=== PATIENT | female | born 1960 | race Caucasian/White ===

== ENCOUNTER → 2017-01-12 | Outpatient (CLI) | payer BC, OTHER | LOC: PUL 10:26 | DX: J42 Unspecified chronic bronchitis (principal); Z87.891 Personal history of nicotine dependence ==

== ENCOUNTER 2021-09-29 17:11 | Inpatient (IN) | payer OTHER ==
[~2021-09-29] VITALS: Ht 172.7 cm; Wt 98.4 kg
[2021-09-29 17:14] VITALS: BP 130/74
[2021-09-29 17:45] LABS: URINE BLOOD 1+ (Negative); URINE COLOR YELLOW; URINE GLUCOSE-RANDOM* TRACE (Negative); URINE KETONES NEGATIVE (Negative); URINE LEUKOCYTES-REFLEX NEGATIVE (Negative); URINE NITRITE-REFLEX NEGATIVE (Negative); URINE PROTEIN (DIPSTICK) 1+ (Negative); URINE SPECIFIC GRAVITY >= 1.030 (1.005-1.035)
[2021-09-29 17:47] LABS: ICTOTEST (BILI CONFIRMATORY) Negative (Negative); URINE BILIRUBIN NEGATIVE (Negative)
[2021-09-29 17:48] LABS: URINE CLARITY SL HAZY
[2021-09-29 17:52] LABS: AMP/METHAMP Negative (Negative); BARBITURATES Negative (Negative); BENZODIAZEPINES Negative (Negative); COCAINE Negative (Negative); METHADONE Negative (Negative); OPIATES Negative (Negative); PCP Negative (Negative)
[2021-09-29 18:00] LABS: HYALINE CASTS 0-3 Few /LPF (None Seen); SQUAMOUS 0-3 Few /LPF (0-3); URINE RBC 1-2 Rare /HPF (NONE SEEN); URINE WBC-REFLEX 0-5 Rare /HPF (0-5)
[2021-09-29 18:01] LABS: BE(vivo) 2.6 mmol/L (-2 to +3); HCO3 29.3 mmol/L (22.0-26.0); PCO2 52.7 mmHg (35.0-45.0); PO2 136.3 mmHg (80.0-100.0); pH 7.363 (7.360-7.450); sO2 98.6 % (92.0-98.0)
[2021-09-29 18:01] LABS: CRYSTALS None Seen /LPF (None Seen); FINE GRANULAR CASTS 0-3 Few /LPF (None Seen)
[2021-09-29 18:15] LABS: HEMATOCRIT 47.5 % (37.0-47.0); HEMOGLOBIN 15.4 gm/dL (12.0-15.0); MCH 29.8 pg (26.0-34.0); MCHC 32.5 g/dL (28.0-37.0); MCV 91.9 fL (80.0-100.0); PLATELET COUNT 177 thou/uL (150-400); RBC 5.17 mil/uL (4.20-5.00); RDW 15.1 % (10.5-14.5); WBC 11.3 thou/uL (4.0-11.0)
[2021-09-29 18:40] LABS: CALCIUM 8.5 mg/dL (8.5-10.1); CREATININE 1.2 mg/dL (0.6-1.0); POTASSIUM 4.2 mmol/L (3.5-5.1)
[2021-09-29 18:59] LABS: ABSOLUTE NEUTROPHILS 9.2 thou/uL (1.4-8.2); ALBUMIN 3.1 g/dL (3.4-5.0); TOTAL BILIRUBIN 3.1 mg/dL (0.2-1.0); TOTAL PROTEIN 6.4 g/dL (6.4-8.2)
--- NOTE | 2021-09-29 20:31 | NUR ---
SPOKE WITH PT FAMILY FRIEND ASHLEY MITCHELL [phone]. PT GRANDDAUGHTER JENA CORDOVA IS WITH NITIN. SPOKE WITH THEM AT LENGTH >20 MIN REGARDING TESTING AND ER PROCESS. EXPLAINED LAB AND RADIOLOGY TESTING AND ADMISSION PROCESS. PT DAUGHTER HARLAN WAS AT BEDSIDE AND HAD CALLED FAMILY TELLING THEM PT WAS HAVING STROKES SEIZURES AND A HEART ATTACK. REASSURED FAMILY THAT THERE HAS BEEN NO DIAGNOSIS MADE AT THIS TIME TESTING IN ONGOING. EXPLAINED THAT PT HAS HAD NO SEIZURE LIKE ACTIVITY AND THAT HER NEUROLOGICAL PRESENTATION IS NOT CONCERNING FOR AN ACUTE STROKE AT THIS TIME. REASSURED THAT ASSESSMENT AND MONITORING IN ONGOING AND I WILL CALL WHEN TESTING IS COMPLETED AND MORE INFORMATION IS AVALIABLE.
[2021-09-29 22:30] VITALS: BP 107/48
[2021-09-29 23:00] VITALS: BP 101/69
[2021-09-30] VITALS (19 sets, daily range): BP systolic 99–128; BP diastolic 49–71
--- NOTE | 2021-09-30 01:00 | NUR ---
Transfer to room 245 for closer monitoring.
[2021-09-30 03:10] LABS: URINE BILIRUBIN NEGATIVE (Negative); URINE BLOOD 3+ (Negative); URINE CLARITY SL CLOUDY; URINE COLOR YELLOW; URINE GLUCOSE-RANDOM* NEGATIVE (Negative); URINE KETONES 1+ (Negative); URINE LEUKOCYTES NEGATIVE (Negative); URINE NITRITE NEGATIVE (Negative); URINE PROTEIN (DIPSTICK) TRACE (Negative)
[2021-09-30 04:40] LABS: BACTERIA 1-9 Few /HPF (None Seen); CELLULAR CASTS 0-3 Few /LPF (None Seen); CRYSTALS None Seen /LPF (None Seen); MUCUS 0-3 Light strn/LPF (None Seen); SQUAMOUS 0-3 Few /LPF (0-3); URINE RBC >20 Many /HPF (NONE SEEN); URINE WBC 1-5 Rare /HPF (NONE SEEN)
[2021-09-30 06:12] LABS: HEMATOCRIT 46.2 % (37.0-47.0); HEMOGLOBIN 14.7 gm/dL (12.0-15.0); MCH 29.6 pg (26.0-34.0); MCHC 31.7 g/dL (28.0-37.0); MCV 93.3 fL (80.0-100.0); RBC 4.95 mil/uL (4.20-5.00); RDW 15.2 % (10.5-14.5)
[2021-09-30 07:28] LABS: ANION GAP 11 mmol/L (7-16); BUN 17 mg/dL (7-18); CALCIUM 8.2 mg/dL (8.5-10.1); CHLORIDE 103 mmol/L (98-107); CO2 30 mmol/L (21-32); GLUCOSE 105 mg/dL (74-106); POTASSIUM 3.8 mmol/L (3.5-5.1); SGPT 1778 U/L (14-59); SODIUM 144 mmol/L (136-145); TOTAL BILIRUBIN 2.8 mg/dL (0.2-1.0); TOTAL PROTEIN 6.9 g/dL (6.4-8.2)
--- NOTE | 2021-09-30 07:28 | NUR ---
ORDERS FOR EVAL AND TREAT HOWEVER Pt TRANSFERRED TO ICU. WILL PLACE ON HOLD AND AWAIT NEW ORDERS WHEN APPROPRIATE
--- NOTE | 2021-09-30 07:42 | EKG ---
[address] [address] ELECTROCARDIOGRAM REPORT Name: DANIEL TREVINO Room #: 245-P [facility] IN .R.#: [id number] Admission: 09/29/21 Attend Phys: Curt López MD Discharge: Date of : 64 Report #: [id number] [facility] ED Test Date: 2021-09-29 Test Time: 19:11:51 Pat Name: DANIEL CURIEL Department: Room: [facility] Gender: F Real Estate Financial Analyst: tierra : 1960 Requested By: Ravindra Bell Order Number: [id number] MD: Laureano Mei Measurements Intervals [place] Rate: 83 P: 63 VA: 134 QRS: 90 QRSD: 93 T: -17 QT: 352 QTc: 414 Interpretive Statements Sinus rhythm Borderline right axis deviation Repol abnrm precordial leads No previous ECG available for comparison Electronically Signed On 09-30-2021 7:41:52 FORGE HELPER by Laureano Mei [email or web address] <ELECTRONICALLY SIGNED> By: Laureano Mei MD, [facility] 09/30/21 0741 10 10 Laureano Mei MD, FACC /EPI
[2021-09-30 07:58] LABS: SGOT 2236 U/L (15-37)
[2021-09-30 10:11] LABS: GGTP 95 U/L (5-55)
--- NOTE | 2021-09-30 10:57 | 2DMMODE ---
[facility] [place] [address] 2 D/M-MODE ECHOCARDIOGRAM Name: DANIEL TREVINO Room #: 245-P [facility] IN M.R.#: [id number] Admission: 09/29/21 Attend Phys: Ronald Bateman Discharge: Date of : 64 Report #: [id number] THIS REPORT FOR: cc: Tierra Azul MD, Stephanie B. MD Santiago, Patrick MD [facility] ~ APPROVED REPORT Study performed: 09/30/2021 09:21:15 EXAM: Comprehensive 2D, Doppler, and color-flow Echocardiogram Patient Location: ICU Room #: [facility] Status: routine BSA: 2.12 HR: 71 bpm BP: 99/50 mmHg Rhythm: NSR Other Information Study Quality: Adequate Technically limited study due to minimal patient cooperation. Indications Elevated troponin. 2D Dimensions IVSd: 9.72 (7-11mm) LVOT Diam: 19.56 (18-24mm) LVDd: 51.94 mm PWd: 10.27 (7-11mm) Ascending Ao: 27.25 (22-36mm) LVDs: 36.41 (25-40mm) Left Atrium: 39.92 (27-40mm) Aortic Root: 29.47 mm Volumes Left Atrial Volume (Systole) Single Plane 4CH: 37.23 mL Single Plane 2CH: 30.81 mL LA ESV Index: 17.00 mL/m2 Aortic Valve AoV Peak Ankit.: 1.32 m/s AO Peak Gr.: 6.95 mmHg LVOT Max P.93 mmHg LVOT Max V: 1.11 m/s [facility] [address] [place] [address] 2 D/M-MODE ECHOCARDIOGRAM Name: DANIEL TREVINO Room #: 245-P [facility] IN [facility]#: [id number] Admission: 09/29/21 Attend Phys: Ronald Pride Dec Discharge: Date of : 64 Report #: [id number] MARIPOSA Vmax: 2.53 cm2 Mitral Valve E/A Ratio: 1.4 MV Decel. Time: 214.06 ms MV E Max Ankit.: 0.79 m/s MV A Ankit.: 0.57 m/s MV PHT: 62.08 ms IVRT: 58.82 ms Pulmonary Valve PV Peak Ankit.: 0.76 m/s PV Peak Gr.: 2.30 mmHg Tricuspid Valve RAP Estimate: 12.00 mmHg Left Ventricle The left ventricle is normal size. There is normal LV segmental wall motion. There is normal left ventricular wall thickness. Left ventricular systolic function is normal. LVEF is 55%. Right Ventricle The right ventricle is normal size. The right ventricular systolic function is normal. Atria The left atrium size is normal. The right atrium size is normal. Aortic Valve The aortic valve is normal in structure. No aortic regurgitation is present. There is no aortic valvular stenosis. Mitral Valve The mitral valve is normal in structure. Trace mitral regurgitation. Tricuspid Valve The tricuspid valve is normal in structure. There is no tricuspid valve regurgitation noted. Unable to assess PA pressure. Pulmonic Valve The pulmonary valve is normal in structure. Trace pulmonic regurgitation. Great Vessels [facility] [address] [place] [address] 2 D/M-MODE ECHOCARDIOGRAM Name: YARELIROSEANN CURIELDANIEL Montiel Room #: 245-P [facility] IN ..#: [id number] Admission: 09/29/21 Attend Phys: Ronald Gambino Discharge: Date of : 64 Report #: [id number] The aortic root is normal in size. The ascending aorta is normal in size. IVC is dilated and collapses <50% with inspiration. Pericardium There is no pericardial effusion. <Conclusion> Normal left ventricle size/wall thickness Ejection fraction 55%, no obvious segmental wall motion normality Normal right ventricle size/function Normal atrial size Normal aortic/mitral valve structure and function No tricuspid valve insufficiency No pericardial effusion Normal aortic root size. <ELECTRONICALLY SIGNED> By: Laureano Mei MD, FACC 09/30/21 1057 1057 1057 Laureano Mei MD, FACC /INF
[2021-09-30 15:09] LABS: FOLIC ACID 6.7 ng/mL (8.6-58.9)
[2021-09-30 15:28] LABS: CHOLESTEROL 157 mg/dL (<200); HDL CHOLESTEROL 38 mg/dL (>40); LDL CHOLESTEROL 96 mg/dL (<100); TC:HDL 4.1 Ratio (Not establshd); TRIGLYCERIDE 117 mg/dL (<150); VLDL 23 mg/dL (<40)
--- NOTE | 2021-09-30 15:52 | NUR ---
PICC PLACED IN ICU
--- NOTE | 2021-09-30 16:50 | NUR ---
PT ADMITTED RELATED TO LIVER FAILURE AND ENCEPHLOPATHY. CM REVIEWED CHART AND SPOKE WITH CARE TEAM. PT SEEN BY CARDIOLOGY AND HAD ECHO. PT HAD CT OF HEAD AND ABD. CM CALLED AND SPOKE WITH PT'S DTR AMI. SHE INDICATED THAT PT HAD BEEN A&O X4. CAT SCANNER OPERATOR. DTR INDICATED THAT PATIENT RESIDES IN A HOUSE WITH WHO HER MOTHER. 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 DTR INDICATED PT HAD BEEN INDEPENDENET WITH GAIT AND ADLS CAT SCANNER OPERATOR. CARE TEAM INDICATED THAT PT MAY BE ABLE TO TRANSFER OUT OF ICU ONCE A BED IS OPEN. CM FOLLOWING REGARDING DC PLANNING.
--- NOTE | 2021-09-30 22:58 | NUR ---
Nursing Note Assumed care at 1900; pt resting in bed. a/o x4; was unsure about hospital name; discussed POC; currently resting on 3L NC; BLAKE; weakness noted; afebrile, SR/SB, heard to DD, no c/o pain; mild confusion. lungs clear over diminished; noted mouth breather when sleeping. pt stated that after an ERCP she did have a resp. code/aspiration requiring intubation/vent/icu stay in the past. Stated she 'hasnt been the same since'. pt transferring to room 211 [address]
[2021-10-01] VITALS: BP 111/71
[2021-10-01 03:06] LABS: HAV IgM AB (ANTI-HAV IgM) Negative (Negative); HEPATITIS B SURFACE AG Negative (Negative)
[2021-10-01 04:18] LABS: HEMATOCRIT 42.1 % (37.0-47.0); HEMOGLOBIN 13.2 gm/dL (12.0-15.0); MCH 29.4 pg (26.0-34.0); MCHC 31.4 g/dL (28.0-37.0); MCV 93.5 fL (80.0-100.0); RBC 4.5 mil/uL (4.20-5.00); RDW 15.3 % (10.5-14.5); WBC 10.8 thou/uL (4.0-11.0)
[2021-10-01 04:45] VITALS: BP 103/75
[2021-10-01 04:48] LABS: ALBUMIN 2.6 g/dL (3.4-5.0); CALCIUM 8.2 mg/dL (8.5-10.1); CREATININE 0.8 mg/dL (0.6-1.0); MAGNESIUM 2.7 mg/dL (1.8-2.4); POTASSIUM 3.9 mmol/L (3.5-5.1); TOTAL BILIRUBIN 0.8 mg/dL (0.2-1.0)
[2021-10-01 07:14] VITALS: BP 106/57
[2021-10-01 08:04] LABS: HEPATITIS C VIRUS AB <0.1
[2021-10-01 11:08] VITALS: BP 110/64
[2021-10-01 15:44] VITALS: BP 101/58
[2021-10-01] MEDS ORDERED: DESVENLAFAXINE50 MG PO (16:34)
[2021-10-01] MEDS ORDERED: NORCO5 PO (16:34)
[2021-10-01] MEDS ORDERED: NEURONTIN100 MG PO (16:35)
[2021-10-01] MEDS ORDERED: HYDROCORTISONE5 MG PO (16:37)
[2021-10-01] MEDS ORDERED: LEVOTHYROXINE125 MC1 PO (16:38)
[2021-10-01] MEDS ORDERED: ZOFRAN4 MG PO (16:39)
[2021-10-01] MEDS ORDERED: PANCRELIPASE (16:59)
[2021-10-01] MEDS ORDERED: RANITIDINE PO (17:00)
[2021-10-01 19:53] VITALS: BP 112/65
--- NOTE | 2021-10-01 20:07 | NUR ---
PATIENT ALERT/ORIENTED BUT FLUCUATES WITH MENTATION STATUS. HAS PERIODS OF FORGETFULNESS/DISCONNECT WITH STATMENTS SHE IS MAKING. DENIES ANY PAIN OR DISCOMFORT, STATES SHE IS JUST READY TO GET MOVING TO GO HOME. SINUS RHYTHM/[place] ON THE MONITOR. MID 40'S-50'S WHILE SLEEPING. IV FLUIDS DISCONTINUED PER ORDERS. PICC LINE RE-DRESSED BY IV NURSE WITH BOARDERED FOAM DRESSING DUE TO TAPE SENSITIVITY. DAUGHTER AT BEDSIDE THIS AFTERNOON, REQUESTED PHYSICIAN CONTACT HER SHE FEELS THEY ARE GETTING MISMATCHED INFORMATION BETWEEN PROVIDERS. SPOKE WITH DR. MARSHALL AND HE CONTACTED HER. UPDATED PATIENT MED REC THIS HAD NOT BEEN DONE SINCE ADMIT. PATIENT UP TO CHAIR THIS AFTERNOON AFTER HAVING BOWEL MOVEMENT. UP WITH 1 ASSIST. UNSTEADY ON FEET. PROGRESSING BUT WILL REQUIRE MORE REHAB AND CONGNITIVE IMPROVEMENT FOR SAFE DISCHARGE.
[2021-10-02 02:01] LABS: ABSOLUTE NEUTROPHILS 7.3 thou/uL (1.4-8.2); BASOPHILS 0.2 % (0.0-2.0); EOSINOPHILS 0.1 % (0.0-3.0); HEMATOCRIT 40.5 % (37.0-47.0); HEMOGLOBIN 13.2 gm/dL (12.0-15.0); LYMPHOCYTES 7.6 % (24.0-44.0); MCH 30.3 pg (26.0-34.0); MCHC 32.6 g/dL (28.0-37.0); MONOCYTES 4.6 % (1.0-8.0); PLATELET COUNT 128 thou/uL (150-400); POLYS 87.5 % (36.0-66.0); RBC 4.35 mil/uL (4.20-5.00); RDW 15.3 % (10.5-14.5); WBC 8.9 thou/uL (4.0-11.0)
[2021-10-02 02:06] LABS: ALBUMIN 2.6 g/dL (3.4-5.0); CALCIUM 8.1 mg/dL (8.5-10.1); CREATININE 0.8 mg/dL (0.6-1.0); MAGNESIUM 2.5 mg/dL (1.8-2.4); POTASSIUM 3.7 mmol/L (3.5-5.1); TOTAL BILIRUBIN 0.5 mg/dL (0.2-1.0); TOTAL PROTEIN 5.9 g/dL (6.4-8.2)
[2021-10-02 04:22] VITALS: BP 119/76
--- NOTE | 2021-10-02 04:32 | NUR ---
PT RESTING ON AND OFF IN ROOM, AWOKE AT [facility], CONFUSED TO DATE AND TIME, WANTED TO WATCH [employer] GAME, AFTER SEVERAL ATTEMPTS AT REORIENTATION SHE CALLED HER DAUGHTER AND FINALLY ACCEPTED ORIENTATION ANSWERS, LABS DRAWN AND SENT TO LAB, VSS REMAINS SB ON MONITOR, NO C/O PAIN, WILL CON'T TO MONITOR PER PPOC.
[2021-10-02 07:09] VITALS: BP 123/66
[2021-10-02] MEDS ORDERED: CEFUROXIME500 MG PO (08:50)
[2021-10-02 11:00] VITALS: BP 112/62
[2021-10-02] MEDS ORDERED: LEVOFLOXACIN500 MG PO (12:49)
[2021-10-02 15:15] VITALS: BP 96/59
--- NOTE | 2021-10-02 17:40 | NUR ---
PATIENT IS STILL REQUIRING OXYGEN AND NOT SAFE TO DISCHARGE. DR. MARSHALL CONTACTED MULTIPLE TIMES ABOUT INABILITY TO WEAN OXYGEN. PATIENT SATING 80% ON 2L, TURNED BACK TO 3L AND MAINTAINING 90-92%. DAUGHTER VISITED AND ALSO CONCEREND ABOUT SAFE DISCHARGE PATIENT IS STILL CONFUSED.
[2021-10-02 20:20] VITALS: BP 99/56
--- NOTE | 2021-10-03 01:01 | NUR ---
PT SITTING IN RECLINER WITH FEET ELEVATED NOW ASKING TO USE BSC AND GO BACK TO BED, REMAINS UNSTEADY WHEN UP PLACED BED ALARM ON, A&O YET IMPULSIVE AND DISORIENTED TO TIME, VSS, O2 AT 3L/NC, STATES SHE THINKS SHE CAN GO HOME WITHOUT THE OXYGEN, WILL CON'T TO MONITOR PER PPOC.
[2021-10-03 04:59] VITALS: BP 115/64
[2021-10-03 06:57] LABS: ALBUMIN 2.6 g/dL (3.4-5.0); CALCIUM 8.2 mg/dL (8.5-10.1); CREATININE 0.7 mg/dL (0.6-1.0); MAGNESIUM 2.3 mg/dL (1.8-2.4); TOTAL BILIRUBIN 0.6 mg/dL (0.2-1.0); TOTAL PROTEIN 5.6 g/dL (6.4-8.2)
[2021-10-03 07:15] VITALS: BP 126/65
[2021-10-03 10:45] VITALS: BP 111/66
[2021-10-03 11:00] VITALS: BP 111/66
--- NOTE | 2021-10-03 11:08 | NUR ---
RT CAME TO DESK TO LET STAFF KNOW THAT PATIENT WAS LOCATED ON THE FLOOR. AT THE SAME TIME THIS RN WAS ON THE PHONE WITH THE WAR ROOM ABOUT LEADS BEING OFF. YAMILA FUENTES, AND MYSELF ENTERED ROOM TO FIND PATIENT ON FLOOR NEXT TO BSC. PATIENT STATES THAT SHE HAD CALLED OUT TWICE AND NEEDED TO USE THE RESTROOM AND NO ONE CAME TO ASSIST SO SHE GOT UP AND MADE IT TO THE BS BUT WHILE TRYING TO ADJUST HERSELF SHE SLID OFF THE COMMODE AND LANDED ON HER BUTTOCKS. SHE STATES SHE DID NOT HIT HER HEAD AND HER PICC LINE WAS PULLED OUT DURING THE FALL. DRESSING PLACED OVER PICC SITE. PATIENT WAS CLEANED UP AND RETURNED TO [facility] COMMODE TO FINISH VOIDING. ONCE PATIENT WAS FINISHED SHE AMUBLATED WITH GAIT BELT TO THE BED AND WAS SETTLED INTO THE BED WITH BED ALARM ON. FALL SHEET FILLED OUT, CN AND SUPERIVOR NOTIFIED, AND MESSAGE LEFT FOR PATIENTS' DAUGHTER FOR A RETURN CALL. MARGOTH
--- NOTE | 2021-10-03 14:11 | NUR ---
PT WITH TENTATIVE PLAN TO DC 12-12. DAUGHTER FELT PT WAS NOT AT BASELINE. PT IS CONFUSED AND FELL THIS AM. IN PROCESS OF HAVING THERAPY EVALS AND POSSIBLE NEED FOR ACUTE REHAB/SNF. DISCUSSED WITH PT AND PT IS NOT AGREEABLE SHE WANTS TO RETURN HOME. CM LEFT MESSAGE WITH DAUGHTER. PT DOES NOT WEAR O2 AT HOME. SAT EX COMPLETED AND PT REQUIRES 2L CONT. CM FOLLOWING.
[2021-10-03 15:10] VITALS: BP 107/65
[2021-10-03 20:47] VITALS: BP 127/71
--- NOTE | 2021-10-04 06:49 | NUR ---
ASSUMED CARE OF PT AT 1900. ASSESSED PT TO BE AOX4 60F PRESENTING WITH LIVER FAILURE/ENCEPHALOPATHY. PT WAS ABLE TO REST QUIETLY THROUGHOUT THE NIGHT WITH NO COMPLAINTS, VSS. EDUCATED PT AND DAUGHTER EARLY IN PM ON REHABILITATION VS SNIF CHOICE AND HOW TO USE INCENTIVE SPIROMETER. PT STABLE ON 2L, UP WITH X1 AND A WALKER TO COMMODE, PAIN CONTROLLED. NO FURTHER COMPLAINTS, WILL CONT TO MONITOR.
[2021-10-04 07:22] LABS: ALBUMIN 2.7 g/dL (3.4-5.0); CALCIUM 7.9 mg/dL (8.5-10.1); CREATININE 0.7 mg/dL (0.6-1.0); PHOSPHORUS 2.1 mg/dL (2.5-4.9)
[2021-10-04 07:29] LABS: POTASSIUM 2.9 mmol/L (3.5-5.1)
[2021-10-04 08:30] VITALS: BP 121/68; BP 142/81
--- NOTE | 2021-10-04 11:37 | NUR ---
spoke with dtr who reports she sp with her mom last evening regarding post acute care. She reports her mom agreeable for short stay. She will contact her HR dept regarding short term disability paperwork from her employment. She requests referral to [facility] to determine benefits and any copays. Casemgt following.
--- NOTE | 2021-10-04 16:06 | NUR ---
PT WORKED WITH PT AND OT THIS DAY. PT SAID ACUTE REHAB VS SKILLED REHAB, OT SAID ONGOING ASSMENT INIDCATED, HOME WIHT HH, ACUTE REHAB. 5N ASSESSED AND INDICATED PT COULD LIKELY SAFTELY DC HOME WIHT HH OR SHORT TERM SKILLED REHAB. SHE STATED HER INSURANCE [employer] WOUDN'T AUTH ACUTE REHAB. CM MET WITH PT AT BEDSIDE AND SHE INDICATED SHE WASN'T INTERESTED IN GOING TO ANY REHAB AND THAT SHE WANTED TO GO HOME. SHE INDICATED SHE WOULD BE RECEPTIVE TO HH SERVICES AND O2 OR A WALKER IF NEEDED. CM CALLED PT'S DTR AND SHE INDICATED THAT SHE WAS AWARE PT WANTED TO DC HOME. SHE INIDCATED SHE WOULD LIKE FOR HER MOM TO USE [facility] IF HER MOM DOESN'T HAVE A PREFERANCE. CM FOLLOWING REGARDING DC PLANNING. ST WAS ORDERED FOR COG EVAL.
--- NOTE | 2021-10-04 19:30 | NUR ---
PT ALERT AND ORIENTED TIMES FOUR. VSS. PT DENIES PAIN/SOA. PT TOLEARTES MEDS AND MEALS. PT UP TO CHAIR WITH ASSIST OF ONE. PT SLOWLY PROGRESSING TOWRADS POC GOALS.
[2021-10-04 19:47] VITALS: BP 107/59
[2021-10-04 23:51] VITALS: BP 97/55
[2021-10-05] VITALS (8 sets, daily range): BP systolic 88–114; BP diastolic 58–68
--- NOTE | 2021-10-05 04:47 | NUR ---
PATIENT AOX4 MAKES NEEDS KNOWN. PATIENT AMBULATES SLOWLY TO THE BATHROOM WITH STEADY GAITS. PATIENT ON 2L OF OXYGEN NO SOA OR DISTRESS NOTED THIS SHIFT. FALL PRECAUTION IN PLACE. PATIENT IN BED ASLEEP AT THIS TIME BREATHING REGULAR AND UNLABOURED.
[2021-10-06 01:14] VITALS: BP 107/61
--- NOTE | 2021-10-06 04:50 | NUR ---
Pt. rested quietly during the night when checked on during frequent rounds. She has been up to the bathroom with her walker and assistance of one. She offers no c/o pain. Bed alarm is on.
[2021-10-06 05:42] VITALS: BP 102/53
[2021-10-06 07:44] VITALS: BP 94/55
--- NOTE | 2021-10-06 09:14 | NUR ---
[facility] WAS ALL SET FOR PT TO DC HOME YESTERDAY BETWEEN [id number] WHEN DTR GOT OFF WORK. APPARENTLY PT WASN'T ABLE TO CONVEY TO DTR AND CARE TEAM WASN'T AWARE OF HOW HOME O2 UPON DC WORKS. WHEN CM DELIVERED HER [facility] PORTABLE TANK TO TAKE HOME WITH HER CM HAD CONVEYED TO PT THAT UPON DC SHE IS TO CALL [facility] AND THEY WILL DELIVER HER HOME SET UP CONCENTRATOR AND ADDITIONAL PORTABLE TANKS. MASTER SPOKE WITH DTR THIS AM. SHE IS NOW AWARE AND SHE INDICATED THAT HER SPOUSE PT'S SON IN LAW WILL PICK PT UP BETWEEN 10:00-11:00 THIS AM. MASTER NOTIFIED NURSE AND HOSPITALIST. CM TO NOTIFY [facility] AND [facility].
[2021-10-06 09:26] VITALS: BP 98/58
--- NOTE | 2021-10-06 11:02 | NUR ---
Seen for LOS. Pt noted with complicated medical hx including [place]'s and pacreatitis. Was scheduled for d/c yesterday, however, there was a misunderstanding r/t O2 in the home setting. Pt likely to d/c home today with HH and home O2.
--- NOTE | 2021-10-06 11:39 | NUR ---
RN ASSUMED PT'S CARE AT 0700-1120AM, PT IS A&OX4, PT IS IN O2 2L/MIN/NC, PT'S VS AND O2SAT ARE STABLE, PT CAN GET UP TO BATH ROOM WITH ASSIST, PT DENIES PAIN AND SOB, PT HAD ORDER TO DC TO HOME WITH HOME HEALTH SERVICE YESTODAY, PT AND PT'S SON ARE READY TODAY, PT AND PT'S SON UNDERSTANE DC WELL , PT'S SON DIRECTOR IMMUNOLOGY PT TO HOME AT 1120AM.
== END 2021-10-06 11:30 | disposition home health service (06) | DRG 871 ==
LOC: ER 17:11 → ICU 21:50 → EROBS 21:50 → 4W 21:50 → 3W 22:21 → ICU 09-30 01:00 → 2N 09-30 23:52 → 4W 10-03 18:21 → 4N 10-03 19:10 → 4W 10-03 19:41
PROVIDERS: Emergency Medicine; Nurse Practitioner Family; ADMIT Hospitalist; ATTEND Hospitalist
PROC: 02HV33Z Insertion of Infusion Device into Superior Vena Cava, Percutaneous Approach (ICD-10-PCS; principal; 2021-09-30)
DX: A41.9 Sepsis, unspecified organism (principal); J18.9 Pneumonia, unspecified organism; K72.00 Acute and subacute hepatic failure without coma; J96.01 Acute respiratory failure with hypoxia; N17.9 Acute kidney failure, unspecified; E27.2 Addisonian crisis; E27.1 Primary adrenocortical insufficiency; K86.1 Other chronic pancreatitis; G93.40 Encephalopathy, unspecified; R77.8 Other specified abnormalities of plasma proteins; G43.909 Migraine, unspecified, not intractable, without status migrainosus; K72.90 Hepatic failure, unspecified without coma; E89.0 Postprocedural hypothyroidism; Z66 Do not resuscitate; R74.01 Elevation of levels of liver transaminase levels; R26.89 Other abnormalities of gait and mobility; G47.33 Obstructive sleep apnea (adult) (pediatric); Z20.822 Contact with and (suspected) exposure to COVID-19; Z86.711 Personal history of pulmonary embolism; Z90.49 Acquired absence of other specified parts of digestive tract; Z90.710 Acquired absence of both cervix and uterus
CPT/HCPCS: 10045; 10081; 10879; 27000